=== PATIENT | female | born 1945 | race Caucasian/White ===

== ENCOUNTER → 2016-11-05 | Outpatient (CLI) | payer OTHER ==
--- NOTE | 2016-11-05 17:47 | MRI ---
History: Lumbago with sciatica. Left side radiculopathy, low back Technique: Multiplanar, multi sequence MR imaging of the lumbar spine was performed without contrast. Comparison:NONE Findings: For the purposes of this dictation, it is assumed that there are 5 non rib-bearing lumbar type verteb ral bodies. The most caudal, fully segmented lumbar type vertebral body will be labeled L5. The vertebral bodies demonstrate normal height and alignment. There is moderate to severe DDD at L3-L 4 through L5-S1 with disk height narrowing and disc desiccation. There is some vacuum disc phenomenon at L5-S1. Bone marrow signal appears grossly normal. The conus medullaris terminates in an appropria te fashion at the superior endplate of L2. T12-L1: There is mild to moderate bilateral facet arthrosis. There is no significant spinal canal or neural foraminal stenosis. L1-L2: There is mild bilateral facet arthrosis. No significant spinal canal or neural foraminal steno sis. L2-L3: There is a concentric disk bulge with mild to moderate bilateral facet arthrosis and ligamentu m flavum thickening. There is no significant spinal canal or neural foraminal stenosis. L3-L4: There is a concentric disk bulge with moderate right and mild left facet arthrosis and ligamen quang flavum thickening. The disc bulge is eccentric to the right and results in right subarticular zon e stenosis. There is no significant spinal canal stenosis. There is mild right neural foraminal steno sis. L4-L5: There is a concentric disk bulge. There are congenitally short pedicles at L4 and L5. There is moderate bilateral facet arthrosis and ligamentum flavum thickening. There is mild spinal canal sten osis. There is mild right neural foraminal narrowing however there is preservation of the perineural fat. L5-S1: There is a concentric disk bulge with a focal posterior central disc protrusion which measures 6 mm transverse as seen on axial T2 image 31. It measures 5 mm craniocaudal by 3 mm AP. The protrusi on does not appear to contact traversing nerve roots. No significant spinal canal stenosis is demonst rated. There is severe left neural foraminal stenosis, secondary to a left foraminal disc osteophyte complex. There is severe bilateral facet arthrosis left worse than right. Impression: 1. Left foraminal disc osteophyte complex at L5-S1 results in severe left neural foraminal stenosis. 2. Focal posterior disc protrusion at L5-S1 which approaches but does not appear to contact traversin g nerve roots. 3. Multilevel degenerative changes are noted as discussed above. There is mild spinal canal stenosis at L4-L5 and multilevel neural foraminal stenosis. See above for detailed level by level analysis. Reported By:
== END | disposition home or self-care (01) | DRG 552 ==
LOC: RAD 12:28
PROVIDERS: ATTEND Nurse Practitioner Family
DX: M54.42 Lumbago with sciatica, left side (principal); M48.07 Spinal stenosis, lumbosacral region
CPT/HCPCS: 72148

== ENCOUNTER → 2016-11-30 | Outpatient (CLI) | payer OTHER ==
[2016-11-30 11:57] LABS: BLOOD UREA NITROGEN 16 mg/dL (7-18); CALCIUM 9.1 mg/dL (8.5-10.1); CARBON DIOXIDE 27.3 mmol/L (21-32); CHLORIDE 106 mmol/L (98-107); CREATININE 1.02 mg/dL (0.55-1.02); SODIUM 140 mmol/L (136-145); eGFR BLACK RACES > 60 (>60); eGFR NON BLACK RACES 57 (>60)
--- NOTE | 2016-11-30 14:34 | RAD ---
HISTORY: breast cancer and pleural effusion Study: PA and lateral Comparison: None Findings: The heart is normal. The pulmonary vessels are normal. The left lung is clear. There is a mild to mod erate right pleural effusion extending to the mid chest with moderate opacity and volume loss along t he right lung base. There is subsegmental linear opacity extending into the right upper lobe posterio rly which is more prominent. IMPRESSION: Mild to moderate right pleural effusion and associated atelectasis and/or consolidation along the ritika g bases with mild subsegmental atelectasis or infiltrate extending into the right upper lobe posterio rly. Reported By:
--- NOTE | 2016-12-01 20:22 | RAD ---
HISTORY: Shortness of breath, pleural effusion Study: Bilateral decubitus chest films Comparison: Plain film same date Findings: Right lateral decubitus chest film demonstrates a moderate free flowing right pleural effusion. Left lateral decubitus chest film does not demonstrate a left pleural effusion. IMPRESSION: Free-flowing right pleural effusion Reported By:
== END | disposition home or self-care (01) | DRG 204 ==
LOC: LAB 11:23
PROVIDERS: ATTEND Internal Medicine Sleep Medicine
DX: R06.09 Other forms of dyspnea (principal); J90 Pleural effusion, not elsewhere classified; J98.11 Atelectasis
CPT/HCPCS: 36415; 71020; 71035; 80048

== ENCOUNTER 2017-02-20 13:27 | Emergency (ER) | payer OTHER ==
[2017-02-20 13:36] VITALS: BMI 33.9
[2017-02-20] MEDS ORDERED: NS 1000 ML 1,000 ML IV ONE (14:14)
[2017-02-20] MEDS ORDERED: NS 1000 ML 1,000 ML ONE ×2 (14:15→16:49)
--- NOTE | 2017-02-20 15:02 | DR.GENAD ---
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 CURRENTLY HAVE INDWELLING RIGHT CHEST TUBE DRAINING MALIGNANT PLEURAL EFFUSION. SHE PRESENTED TO ED TO ENSURE HER CHEST TUBE WAS IN PLACE. HER BP WAS LOW IN TRIAGE WELL HER OXYGEN SATURATION LEVEL. NO FEVER. - Complaint/Symptoms Chief Complaint Doctors Comments: CHEST PAIN. LOW OXYGEN SAT AND LOW BP IN TRIAGE. Chief Complaint:: patient has a drain for cancer for about a 6 weeks. she has been hurting where the drain is and think it may have moved - Nurses notes reviewed Nurses Notes Review: Yes - Source History Provided: Patient, Family Member - Mode of Arrival Mode of Arrival: Ambulatory - Timing Onset of Chief Complaint: 02/18/17 Came on: Gradually - Duration Duration: Constant Duration: Days - Severity Severity: Severe PMH - PMH Past Medical History: Yes Past Medical History: Hypertension Past Medical History Comment: has cancer and taken chemo Past Surgical History: Yes Surgical History: Unknown - Family History History of Family Medical Conditions: No - Social History Does patient currently use any type of tobacco product: No Have you used tobacco products in the last 12 months: No Type of Tobacco Use: None Does any household member use tobacco: No Alcohol Use: None Do you use any recreational Drugs:: No Lives With: Family Lives Where: Home - infectious screening In the last 2 months have you had wt loss of >10#?: NO Have you had fever, night sweats or hemotysis?: No Have you traveled outside the country in the last 6 months?: No Isolation: Standard ROS - Review of Systems Constitutional: Weakness, Fatigue, Loss of Appetite. negative: Chills, Fever Eyes: negative: Eye Pain, Discharge ENTM: negative: Ear Pain, Nose Discharge, Nose Congestion, Throat Pain Respiratoy: Productive Cough, Short of Breath, Wheezing. negative: Hemoptysis Cardiovascular: Chest Pain, Edema, Other (HYPOTENSION) Gastrointestinal/Abdominal: Nausea Genitourinary: Other (DECREASE URINE OUT PUT.). negative: Dysuria, Frequency, Hematuria Neurological: Weakness, Dizziness, Problems Walking Musculoskeletal: Chest wall (RT INDWELLING RIGHT CHEST WALL.) Integumentary: Other (STASIS DENMATITIS) Hematologic/Lymphatic: Anemia Endocrine: No Symptoms Reported Psychiatric: negative: Suicidal All Other Systems: Reviewed and Negative PE - Vital Signs Vitals: Temperature 98.1 F Pulse Rate [Left Brachial] 91 Pulse Rate 95 Respiratory Rate 18 Blood Pressure [Left Arm] 118/56 Blood Pressure 78/48 O2 Sat by Pulse Oximetry 96 - General Limitations: No Limitations General Appearance: Alert - Head Head Exam: Atraumatic - Eyes Eye exam: PERRL, EOMI. negative: Scleral Icterus, Conjunctival Injection - ENT ENT Exam: Normal External Ear Exam External Ear Exam: Normal External Inspection TM/Canal Exam: Bilateral Normal Nose Exam: Normal Nose Exam Mouth Exam: Normal Inspection Throat Exam: Normal Inspection - Neck Neck Exam: Trachea Midline - Chest Chest Inspection: Symmetric Chest Wall Rise, Tenderness (RT CHEST WALL) - Respiratory Respiratory Exam: Chest Wall Tenderness, Respiratory Distress Respiratory Exam: Bilateral Wheezing, Bilateral Rhonchi, Upper Rhonchi, Lower Wheezing, Lower Rhonchi - Cardiovascular Cardiovascular Exam: Regular Rate, Normal Rhythm, Normal Heart Sounds - Abdominal Exam Abdominal Exam: Normal Bowel Sounds, Soft. negative: Tenderness - Extremities Extremities Exam: Edema (TRACE EDEMA) - Back Back Exam: Paraspinal Tenderness (LOWER BACK) - Neurologic Neurological Exam: Alert, Oriented X3 - Psychiatric Psychiatric Exam: Normal Affect, Normal Mood - Skin Skin Exam: Erythema MDM - Additional Information Additional Information Obtained From: Family - Differential Diagnosis Differential Diagnosis: PNEUMONIA, PNEUMOTHORAX EFFUSION, BREAST CA, MALIGNANT RT PLEURAL EFFUSION Course - Treatment Treatment: SEE ORDERS. BP IMPROVING WITH IV NORMAL SALINE. MED FOR PAIN GIVEN IN ED. PATIENT DO NOT WISH TO STAY IN HOSPITAL. D/C AMA. - Consultation Consultation Comments: DISCUSS [facility] ONCOLOGIST PROBATE PARALEGAL DR. OCHOA. CT FINDINGS AND BUN AND CR, IS DIFFERENT FROM WHAT THEY HAVE ON RECORD. RECOMENT FURTHER EVALUATION AT APPROPIATE FACILITY. - Education/Counseling Education/Counseling: Patient, Family, Education Educated On: Treatment, Diagnosis, Needs for Follow Up ROR - Labs Reviewed Laboratory Results Reviewed?: Yes Result Diagrams: 02/20/17 14:10 02/20/17 14:10 Laboratory: WBC 3.6 X10^3/uL (3.6-10.0) 02/20/17 14:10 RBC 3.54 X10^6/uL (3.5-5.4) 02/20/17 14:10 Hgb 9.6 g/dL (12.0-16.0) L 02/20/17 14:10 Hct 28.9 % (36.0-47.0) L 02/20/17 14:10 MCV 81.6 fL (80.0-100.0) 02/20/17 14:10 MCH 27.2 pg (27.0-34.0) 02/20/17 14:10 MCHC 33.3 g/dL (33.0-35.0) 02/20/17 14:10 RDW 17.6 % (11.6-16.5) H 02/20/17 14:10 Plt Count 219 X10^3/uL (150.0-450.0) 02/20/17 14:10 Plt Count Comment Adequate (ADEQUATE) 02/20/17 14:10 MPV 8.7 fL (7.4-11.0) 02/20/17 14:10 Neut % 72.1 % (42.0-75.0) 02/20/17 14:10 Lymph % 5.8 % (21.0-51.0) L 02/20/17 14:10 [place] % 21.5 % (0.0-13.0) H 02/20/17 14:10 Eos % 0.3 % (0.9-2.9) L 02/20/17 14:10 Baso % 0.3 % (0.2-1.0) 02/20/17 14:10 Neut # 2.6 x10^3/uL (2.2-4.8) 02/20/17 14:10 Lymph # 0.2 X10^3/uL (1.3-2.9) L 02/20/17 14:10 [place] # 0.8 x10^3/uL (0.3-0.8) 02/20/17 14:10 Eos # 0.0 x10^3/uL (0.0-0.2) 02/20/17 14:10 Baso # 0.0 X10^3/uL (0.0-0.1) 02/20/17 14:10 Absolute Nucleated RBC 4.4 /100WBC 02/20/17 14:10 Total Counted 100 02/20/17 14:10 Neutrophils % (Manual) 68 % (39-76) 02/20/17 14:10 Band Neutrophils % 4 % (0-10) 02/20/17 14:10 Lymphocytes % (Manual) 10 % (13-43) L 02/20/17 14:10 Monocytes % (Manual) 18 % (4-9) H 02/20/17 14:10 Plt Morphology Comment Normal (NORMAL) 02/20/17 14:10 RBC Morphology Normal (NORMAL) 02/20/17 14:10 Sodium 135 mmol/L (136-145) L 02/20/17 14:10 Corrected Sodium TNP 02/20/17 14:10 Potassium 3.2 mmol/L (3.5-5.1) L 02/20/17 14:10 Chloride 96 mmol/L (98-107) L 02/20/17 14:10 Carbon Dioxide 27.0 mmol/L (21-32) 02/20/17 14:10 BUN 57 mg/dL (7-18) H 02/20/17 14:10 Creatinine 2.87 mg/dL (0.55-1.02) H 02/20/17 14:10 Est GFR (MDRD) Af Amer 21 (>60) L 02/20/17 14:10 Est GFR (MDRD) Non-Af 17 (>60) L 02/20/17 14:10 Glucose 100 mg/dL (65-99) H 02/20/17 14:10 Lactic Acid 1.3 mmol/L (0.4-2.0) 02/20/17 16:50 Calcium 8.6 mg/dL (8.5-10.1) 02/20/17 14:10 Corrected Calcium 10.2 mg/dL (8.5-10.1) H 02/20/17 14:10 Total Bilirubin 0.40 mg/dL (0.2-1.0) 02/20/17 14:10 AST 39 Units/L (15-37) H 02/20/17 14:10 ALT 26 Units/L (12-78) 02/20/17 14:10 Alkaline Phosphatase 84 Units/L (46-116) 02/20/17 14:10 C-Reactive Protein 465.80 mg/L (0-3.0) H 02/20/17 16:50 Total Protein 6.6 g/dL (6.4-8.2) 02/20/17 14:10 Albumin 2.0 g/dL (3.4-5.0) L 02/20/17 14:10 Globulin 4.6 g/dL (2.5-4.5) H 02/20/17 14:10 Albumin/Globulin Ratio 0.4 Ratio (1.1-2.1) L 02/20/17 14:10 Specimen Type Clean catch urine 02/20/17 17:40 Urine Color Yellow (YELLOW) 02/20/17 17:40 Urine Appearance Cloudy (CLEAR) 02/20/17 17:40 Urine pH 5.0 (5.0 - 8.0) 02/20/17 17:40 Ur Specific [place] 1.025 (1.000-1.030) 02/20/17 17:40 Urine Protein 3+ (NEGATIVE) 02/20/17 17:40 Urine Glucose (UA) Negative (NEGATIVE) 02/20/17 17:40 Urine Ketones Negative (NEGATIVE) 02/20/17 17:40 Urine Occult Blood 4+ (NEGATIVE) 02/20/17 17:40 Urine Nitrite Positive (NEGATIVE) 02/20/17 17:40 Urine Bilirubin Negative (NEGATIVE) 02/20/17 17:40 Urine Urobilinogen Normal (NORMAL) 02/20/17 17:40 Ur Leukocyte Esterase 1+ (NEGATIVE) 02/20/17 17:40 Urine RBC 5-7 /HPF (NEGATIVE) 02/20/17 17:40 Urine WBC 2-4 /HPF (NEGATIVE) 02/20/17 17:40 Ur Squamous Epith Cells Few /HPF (NEGATIVE) 02/20/17 17:40 Amorphous Sediment 1+ /HPF (NEGATIVE) 02/20/17 17:40 Urine Bacteria 3+ /HPF (NEGATIVE) 02/20/17 17:40 Granular Casts Few /LPF (NEGATIVE) 02/20/17 17:40 Urine Mucus Few /HPF (NEGATIVE) 02/20/17 17:40 Ur Culture Indicated? Yes/culture set up 02/20/17 17:40 - XRAY XRAY Interpreted by: Radiologist XRAY Findings: REPORT DISCUSS WITH PATIENT AND HER FAMILY. - EKG Rhythm: NSR (EKG NOTED.) - Diagnosis Discharge Problem: Malignant pleural effusion, Dehydration Hypotension Qualifiers: Hypotension type: other hypotension type Qualified Code(s): I95.89 - Other hypotension Chest pain Qualifiers: Chest pain type: other chest pain Qualified Code(s): R07.89 - Other chest pain ; R07.8 - Other chest pain Breast CA Qualifiers: Breast location: lower outer quadrant of breast Estrogen receptor status: unspecified Patient sex: female Laterality: right Qualified Code(s): C50.511 - Malignant neoplasm of lower-outer quadrant of right female breast UTI (urinary tract infection) Qualifiers: Urinary tract infection type: site unspecified Sepsis Qualifiers: Sepsis type: sepsis due to unspecified organism Qualified Code(s): A41.9 - Sepsis, unspecified organism - Discharge Plan Disposition: 07 AGAINST MEDICAL ADVICE Condition: Stable - Follow ups/Referrals Follow ups/Referrals: JUAN EMERSON [Primary Care Provider] - 3 days - Instructions Instructions: Hypotension, [id number], Urinary Tract Infection, Adult, Easy- to-Read, Sepsis, Adult, Pneumonitis Additional Instructions: RETURN TO ED WISH. YOU DID NOT WISH TO BE TRANSFER TO A HIGHER LEVEL OF CARE HOSPITAL. YOU DID NOT WISH TO STAY AT THIS FACILITY ALSO. YOU ARE BEING DISCHARGE AGAINST MEDICAL ADVICE.
[2017-02-20 15:15] LABS: BASOPHILS % (AUTO) 0.3 % (0.2-1.0); EOSINOPHILS % (AUTO) 0.3 % (0.9-2.9); HEMATOCRIT 28.9 % (36.0-47.0); HEMOGLOBIN 9.6 g/dL (12.0-16.0); LYMPHOCYTES # (AUTO) 0.2 X10^3/uL (1.3-2.9); LYMPHOCYTES % (AUTO) 5.8 % (21.0-51.0); MEAN CORPUSCULAR HEMOGLOBIN 27.2 pg (27.0-34.0); MEAN CORPUSCULAR HGB CONC 33.3 g/dL (33.0-35.0); MEAN CORPUSCULAR VOLUME 81.6 fL (80.0-100.0); MEAN PLATELET VOLUME 8.7 fL (7.4-11.0); MONOCYTES # (AUTO) 0.8 x10^3/uL (0.3-0.8); MONOCYTES % (AUTO) 21.5 % (0.0-13.0); NEUTROPHILS # (AUTO) 2.6 x10^3/uL (2.2-4.8); NEUTROPHILS % (AUTO) 72.1 % (42.0-75.0); PLATELET COUNT 219 X10^3/uL (150.0-450.0); RED BLOOD COUNT 3.54 X10^6/uL (3.5-5.4); RED CELL DISTRIBUTION WIDTH 17.6 % (11.6-16.5); WHITE BLOOD COUNT 3.6 X10^3/uL (3.6-10.0)
[2017-02-20 15:18] LABS: ALANINE AMINOTRANSFERASE 26 Units/L (12-78); ALKALINE PHOSPHATASE 84 Units/L (46-116); ASPARTATE AMINO TRANSFERASE 39 Units/L (15-37); BLOOD UREA NITROGEN 57 mg/dL (7-18); CALCIUM 8.6 mg/dL (8.5-10.1); CHLORIDE 96 mmol/L (98-107); COR CA(FOR HYPOALB) 10.2 mg/dL (8.5-10.1); CREATININE 2.87 mg/dL (0.55-1.02); SODIUM 135 mmol/L (136-145); TOTAL PROTEIN 6.6 g/dL (6.4-8.2); eGFR BLACK RACES 21 (>60); eGFR NON BLACK RACES 17 (>60)
[2017-02-20 15:32] LABS: BAND NEUTROPHILS % 4 % (0-10)
[2017-02-20 15:33] LABS: PLATELET MORPHOLOGY COMMENT NORMAL (NORMAL)
--- NOTE | 2017-02-20 16:08 | CT ---
Indication: Check tube placement Exam: CT chest without contrast Technique: Axial spiral images were obtained from the level above the clavicles through the adrenals without contrast and reconstructed at 5 mm intervals. Automated does control was utilized. Findings: The thyroid gland is unremarkable. There is a left Port-A-Cath in place with the tip in the distal superior vena cava. There are small lymph nodes in the AP window with larger lymph nodes domingo g the pretracheal region with the largest seen just above the deysi measuring 2.6 cm. There is a 2.4 cm subcarinal lymph node. There is soft tissue fullness along the right infrahilar region which is d ifficult to separate from the volume loss consolidation throughout the right lower lobe. There is advid rowing and occlusion of the bronchus to the right lower lobe. There is a small right pleural effusion which appears laterally and superiorly . There is a small catheter chest tube seen inferiorly on the right extending posteriorly and laterally into the pleural fluid collection posteriorly. There are n umerous moderate-size loculated fluid collections beginning in the right apex and extending anteriorl y and medially along the right upper chest with fluid collections extend inferiorly to the level just above the drainage catheter. There is moderate volume loss and consolidation throughout the lower lo be. There is minimal subpleural opacity left lower lobe. Moderate degenerative changes are seen in th e spine with associated moderate kyphotic deformity . There are sclerotic lesions and compression def ormities along the mid thoracic region extending inferiorly suggestive of sclerotic metastasis which is most prominent at T7. Impression: Right chest tube in place inferiorly and extending posteriorly into a small right pleural effusion po steriorly. There are numerous moderate-size loculated pleural fluid collections seen along the apex e xtending throughout the upper chest down to the level just above the drainage catheter. Recommend sofia gical follow-up. Moderate soft tissue fullness and associated consolidation and atelectasis along the right infrahilar region extending into the lower lobe which may represent neoplasm and/or pneumonia. Moderate mediastinal adenopathy . Mild subsegmental atelectasis or pleural thickening along the left lung base . Left Port-A-Cath in good position Severe degenerative changes in the spine with probable sclerotic metastasis along the mid to lower th oracic spine, suggest MRI or bone scan correlation. Reported By:
[2017-02-20] MEDS ORDERED: K-LYTE EFFERVESCENT PO ONE (16:09)
[2017-02-20] MEDS ORDERED: K-LYTE EFFERVESCENT ONE (16:32)
[2017-02-20] MEDS ORDERED: NS 1000 ML 1,000 ML IV SCH (17:00)
[2017-02-20] MEDS ORDERED: MAXIPIME IV ONE (17:29)
[2017-02-20] MEDS ORDERED: NS IV ONE (17:29)
[2017-02-20] MEDS ORDERED: MAXIPIME VIAL 1 GM ONE (17:32)
[2017-02-20 17:33] LABS: C-REACTIVE PROTEIN 465.8 mg/L (0-3.0)
[2017-02-20] MEDS ORDERED: NS 100 ML IV 100 ML IV ONE (17:34)
[2017-02-20 17:48] LABS: BILIRUBIN,URINE NEGATIVE (NEGATIVE); BLOOD/HEMOGLOBIN,URINE 4+ (NEGATIVE); GLUCOSE, URINE NEGATIVE (NEGATIVE); KETONES,URINE NEGATIVE (NEGATIVE); LEUKOCYTE ESTERASE ,URINE 1+ (NEGATIVE); NITRITES,URINE POSITIVE (NEGATIVE); PROTEIN,URINE 3+ (NEGATIVE); UROBILINOGEN,URINE NORMAL (NORMAL)
[2017-02-20 17:56] LABS: LACTIC ACID 1.3 mmol/L (0.4-2.0)
[2017-02-20 18:01] LABS: COLOR,URINE YELLOW (YELLOW)
[2017-02-20 18:02] LABS: AMORPHOUS SEDIMENT,UR 1+ /HPF (NEGATIVE); APPEARANCE,URINE CLOUDY (CLEAR); BACTERIA,URINE 3+ /HPF (NEGATIVE); GRANULAR CASTS,URINE FEW /LPF (NEGATIVE); MUCUS,URINE FEW /HPF (NEGATIVE); SQUAMOUS EPITHELIAL CELL,UR FEW /HPF (NEGATIVE)
[2017-02-20 20:15] VITALS: BP 118/56
== END 2017-02-20 20:32 | disposition left against medical advice (07) ==
LOC: ER 13:27
DX: C50.511 Malignant neoplasm of lower-outer quadrant of right female breast (principal); A41.9 Sepsis, unspecified organism; J91.0 Malignant pleural effusion; N39.0 Urinary tract infection, site not specified; R07.89 Other chest pain; I95.89 Other hypotension; B96.1 Klebsiella pneumoniae [K. pneumoniae] as the cause of diseases classified elsewhere; E86.0 Dehydration
CPT/HCPCS: 36415; 36591; 71250; 80053; 81001; 83605; 85025; 86140; 87040; 87086; 87088; 87186; 93005; 93010; 96365; 96367; 96374; 96375; 99283; 99285; A4222; J0692